=== PATIENT | male | born 1945 | race Caucasian/White ===

== ENCOUNTER → 2020-02-17 | Outpatient (REF) | payer MEDICARE ==
[2020-02-17 18:56] LABS: APPEARANCE, URINE CLOUDY (CLEAR); BACTERIA, URINE AUTO 1+ (NEGATIVE); BILIRUBIN, URINE AUTO NEGATIVE (NEGATIVE); BLOOD, URINE BLOOD 3+ (NEGATIVE); CALCIUM OXALATE CRYSTALS LARGE; COLOR, URINE RED (YELLOW); GLUCOSE, URINE (UA) AUTO NEGATIVE (NEGATIVE); KETONE, URINE AUTO NEGATIVE (NEGATIVE); LEUKOCYTE ESTERASE, URINE AUTO NEGATIVE (NEGATIVE); NITRITE, URINE AUTO NEGATIVE (NEGATIVE); PROTEIN, URINE AUTO 2+ mg/dL (NEGATIVE); RBC, URINE AUTO TNTC /HPF (0-3); SPECIFIC GRAVITY URINE AUTO 1.018 (1.002-1.035); SQUAMOUS EPITHELIAL CELL UR AU 0 /HPF (0-6); UROBILINOGEN, URINE AUTO 0.2 mg/dL (0.0-2.0); WBC, URINE AUTO TNTC /HPF (0-3)
== END ==
LOC: M SMT 16:44
PROVIDERS: ATTEND Nurse Practitioner Family
DX: R31.0 Gross hematuria (principal)

== ENCOUNTER → 2020-03-20 | Outpatient (CLI) | payer MEDICARE ==
[~2020-03-20] MED LIST: ISOVUE-370 76% 100ML VIAL As Ordered ONE
== END ==
LOC: M RAD 15:13
PROVIDERS: ATTEND Nurse Practitioner Family
DX: R31.0 Gross hematuria (principal); N40.0 Benign prostatic hyperplasia without lower urinary tract symptoms
CPT/HCPCS: 74178; Q9967

== ENCOUNTER 2020-04-08 10:28 | Day surgery (SDC) | payer MEDICARE ==
[2020-04-08] MEDS ORDERED: ceFAZolin 2 GM/D5W 50 ML IV BAG (J0690 PER 500MG) As Ordered ONE (10:53)
[2020-04-08] MEDS ORDERED: fentaNYL 100 MCG/2 ML INJECTION (J3010) As Ordered ONE ×2 (11:04→12:22)
[2020-04-08] MEDS ORDERED: MIDAZOLAM INJ 2MG/2ML VIAL (J2250 PER 1MG) As Ordered ONE (11:04)
[2020-04-08] MEDS ORDERED: propofoL 200 MG/20 ML VIAL As Ordered ONE (11:05)
[2020-04-08] MEDS ORDERED: dexameTHASONE 4 MG/ML 1ML VIAL (J1100 PER 1MG) As Ordered ONE (11:05)
[2020-04-08] MEDS ORDERED: ONDANSETRON 4MG/2ML VIAL As Ordered ONE (11:05)
[2020-04-08] MEDS ORDERED: LIDOCAINE 2% 100MG/5ML SDV (FOR ANES.) As Ordered ONE (11:05)
[2020-04-08] MEDS ORDERED: ACETAMINOPHEN 1000MG 100ML IV BTL (OFIRMEV) (J0131 PER 10MG) As Ordered ONE (11:43)
[2020-04-08] MEDS ORDERED: ePHEDrine SULFATE 25 MG/5 ML(5MG/ML) SYRINGE As Ordered ONE (11:49)
[2020-04-08] MEDS ORDERED: GLYCOPYRROLATE INJ 0.2 MG/ML 2 ML VIAL As Ordered ONE (11:50)
[2020-05-27 15:11] LABS: Ca Ox Monohydrate 30 % (.); Size 6x4 mm (.)
--- NOTE | 2020-06-11 13:22 | RO ---
DATE OF OPERATION: 04/08/2020 PREOPERATIVE DIAGNOSIS: Bladder calculi. POSTOPERATIVE DIAGNOSIS: Bladder calculi. PROCEDURE: Laser litholapaxy, bladder calculi. SURGEON: Jose Antonio Currie MD ANESTHESIA: General. TECHNICAL WRITER AND EDITOR: None. INDICATION FOR OPERATION: This is a 75-year-old white male who was found on office cystoscopy to have two large bladder stones measuring about 2 cm each. The patient was therefore brought to the operating room for a laser litholapaxy. DESCRIPTION OF OPERATION: The patient was placed on the table in the supine position, given general anesthesia, placed in lithotomy position, prepped with Betadine paint and draped in an aseptic manner. A timeout was then performed. A 22 [place] cystoscope was then inserted into the meatus and advanced under direct vision of a 30 degree lens to the bladder. The bladder channel was opened as was the bladder neck. In the bladder, the patient was found to have two large bladder stones which were then treated with laser lithotripsy and fragmented into powder in very small pieces. These pieces were then irrigated out. When no further fragments were found, the bladder was drained. Cystoscope was removed and the patient was awakened and sent to recovery room in stable condition, having tolerated the procedure well. ESTIMATED BLOOD LOSS: Less than 10 mL. DRAINS: None. COMPLICATIONS: None. MTDD
== END 2020-04-08 14:45 | disposition home or self-care (01) ==
LOC: M SDC 10:28
PROVIDERS: ATTEND Urology
DX: N21.0 Calculus in bladder (principal); Z79.899 Other long term (current) drug therapy
CPT/HCPCS: 52317; 82365; 88300; J0131; J0690; J1100; J2250; J2405; J3010

== ENCOUNTER 2023-07-03 09:29 | Day surgery (SDC) | payer OTHER ==
[~2023-07-03] VITALS: Ht 167.6 cm; Wt 65.5 kg
[~2023-07-03 09:29] MED LIST changes: +ATOR40TA75 PO; +CLOP75TA2 PO; +FINA5TAB2 PO; -ISOVUE-370 76% 100ML VIAL As Ordered ONE; +LIDOCAINE 2% 100MG/5ML SDV (FOR ANES.) As Ordered ONE; +ONDANSETRON 4MG 2ML VIAL As Ordered ONE; +TAMS1CAP17 PO; +propofoL 200 MG/20 ML VIAL As Ordered ONE
[2023-07-03] MEDS ORDERED: LR 1,000 ML IV SCH ×2 (10:10→13:00)
[2023-07-03 10:41] LABS: HEMATOCRIT 45.2 % (42.0-52.0); HEMOGLOBIN 15.1 g/dl (13.5-17.5); MEAN CORPUSCULAR HGB CONC 33.4 g/dl (32.0-36.5); MEAN CORPUSCULAR VOLUME 98.9 fl (80.0-96.0); PLATELET COUNT, AUTOMATED 123 10^3/uL (150-450); RED BLOOD COUNT 4.57 10^6/uL (4.30-6.10); WHITE BLOOD COUNT 5.4 10^3/uL (4.0-10.0)
[2023-07-03] MEDS ORDERED: MIDAZOLAM INJ 2MG/2ML VIAL As Ordered ONE (10:52)
[2023-07-03] MEDS ORDERED: fentaNYL 100 MCG/2 ML INJECTION As Ordered ONE (10:52)
[2023-07-03] MEDS ORDERED: ISOVUE-300 61% 100ML VIAL As Ordered ONE (10:58)
[2023-07-03] MEDS ORDERED: ceFAZolin SOD 2 GM in IV 1 EA IV ONE (11:00)
[2023-07-03 11:11] LABS: ALBUMIN 3.4 G/DL (3.2-5.2); ALKALINE PHOSPHATASE 73 U/L (46-116); ALT/SGPT 18 U/L (7.0-40); AST/SGOT 18 U/L (<34); BILIRUBIN,TOTAL 0.5 MG/DL (0.3-1.2); BLOOD UREA NITROGEN 28 MG/DL (9-23); CALCIUM LEVEL 8.6 MG/DL (8.3-10.6); CARBON DIOXIDE LEVEL 29 MMOL/L (20-31); CHLORIDE LEVEL 109 MMOL/L (98-107); CREATININE FOR GFR 0.72 MG/DL (0.70-1.30); GLOMERULAR FILTRATION RATE > 60.0 (>42); GLUCOSE, FASTING 91 MG/DL (74-106); POTASSIUM SERUM 4.2 MMOL/L (3.5-5.1); SODIUM LEVEL 145 MMOL/L (136-145); TOTAL PROTEIN 5.9 G/DL (5.7-8.2)
[2023-07-03] MEDS ORDERED: ACETAMINOPHEN 1000MG 100ML IV BAG As Ordered ONE (11:15)
[2023-07-03] MEDS ORDERED: ePHEDrine SULFATE 25 MG/5 ML(5MG/ML) SYRINGE As Ordered ONE (11:36)
[2023-07-03 12:00] LABS: INR 1.07; PROTHROMBIN TIME 13.6 SECONDS (12.5-14.5)
[2023-07-03] MEDS ORDERED: ONDANSETRON 4MG 2ML VIAL IV PRN (13:00)
[2023-07-03] MEDS ORDERED: oxyCODONE 5MG TAB PO PRN (13:00)
[2023-07-03] MEDS ORDERED: fentaNYL 100 MCG/2 ML INJECTION IV PRN (13:00)
[2023-07-03] MEDS ORDERED: HYDROMORPHONE HCL 0.5 MG/ 0.5 ML SYRINGE IV PRN (13:00)
[2023-07-03] MEDS ORDERED: PYRI1TAB5 PO (13:02)
[2023-07-03] MEDS ORDERED: LEVO1TAB39 PO (13:02)
[2023-07-03 18:50] VITALS: BP 139/64; TEMP 97.7; O2SAT 98
[2023-07-10 16:09] LABS: CA Hydro Phos 100 % (.); Size 8x5 mm (.)
== END 2023-07-03 17:00 | disposition home or self-care (01) ==
LOC: M SDC 09:29
PROVIDERS: ATTEND Urology
DX: N21.0 Calculus in bladder (principal); E78.00 Pure hypercholesterolemia, unspecified; Z87.442 Personal history of urinary calculi; Z86.73 Personal history of transient ischemic attack (TIA), and cerebral infarction without residual deficits; Z79.02 Long term (current) use of antithrombotics/antiplatelets; Z90.49 Acquired absence of other specified parts of digestive tract; Z79.899 Other long term (current) drug therapy
CPT/HCPCS: 52318; 80053; 82365; 85027; 85610; C1769; C1894; J0131; J1100; J2250; J2405; J3010; Q9967

== ENCOUNTER 2024-03-21 10:50 | Day surgery (SDC) | payer OTHER ==
[~2024-03-21] VITALS: Ht 167.6 cm; Wt 64.0 kg
[~2024-03-21 10:50] MED LIST changes: +LEVO1TAB39 PO; -LIDOCAINE 2% 100MG/5ML SDV (FOR ANES.) As Ordered ONE; -ONDANSETRON 4MG 2ML VIAL As Ordered ONE; +PYRI1TAB5 PO; -propofoL 200 MG/20 ML VIAL As Ordered ONE
[2024-03-21] MEDS ORDERED: LIDOCAINE 2% 100MG/5ML SDV (FOR ANES.) As Ordered ONE (12:07)
[2024-03-21] MEDS ORDERED: propofoL 500 MG/50 ML VIAL As Ordered ONE (12:07)
[2024-03-21] MEDS ORDERED: fentaNYL 100 MCG/2 ML INJECTION As Ordered ONE (12:08)
[2024-03-21] MEDS ORDERED: dexmedeTOMIDine (4MCG/ML)200MCG/50ML BTL (PRECEDEX) As Ordered ONE (12:08)
[2024-03-21] MEDS ORDERED: KETOROLAC 60MG 2ML VIAL As Ordered ONE (12:13)
[2024-03-21] MEDS: ceFAZolin SOD 2 GM in IV 1 EA IV ONE (13:00)
[2024-03-21] MEDS ORDERED: ACETAMINOPHEN 1000MG 100ML IV BAG As Ordered ONE (13:10)
[2024-03-21] MEDS ORDERED: PHENYLephrine 500MCG 5ML (100MCG/ML) SYRINGE As Ordered ONE (13:19)
[2024-03-21] MEDS ORDERED: VASOPRESSIN INJ 20UNITS/ML 1ML VIAL As Ordered ONE (13:38)
[2024-03-21] MEDS ORDERED: ONDANSETRON 4MG 2ML VIAL As Ordered ONE (13:58)
[2024-03-21] MEDS ORDERED: MACR100C43 PO (14:08)
[2024-03-21 14:11] VITALS: BP 98/53; TEMP 97.3; O2SAT 96
== END 2024-03-21 15:30 | disposition home or self-care (01) ==
LOC: M SDC 10:50
PROVIDERS: ATTEND Urology
DX: C61 Malignant neoplasm of prostate (principal); N21.0 Calculus in bladder; R31.29 Other microscopic hematuria; N52.9 Male erectile dysfunction, unspecified; I45.10 Unspecified right bundle-branch block; E78.5 Hyperlipidemia, unspecified; Z79.899 Other long term (current) drug therapy; Z79.02 Long term (current) use of antithrombotics/antiplatelets; Z86.73 Personal history of transient ischemic attack (TIA), and cerebral infarction without residual deficits; Z90.49 Acquired absence of other specified parts of digestive tract; Z87.19 Personal history of other diseases of the digestive system
CPT/HCPCS: 52317; 52601; 82365; 88305; C1769; C1894; C2617; J0131; J0690; J1100; J1885; J2371; J2405; J2598; J3010

== ENCOUNTER → 2025-01-07 | Outpatient (REF) | payer MEDICARE ==
[~2025-01-07] MED LIST changes: +MACR100C43 PO
[2025-01-07 15:46] LABS: APPEARANCE, URINE HAZY (CLEAR); BACTERIA, URINE AUTO NEGATIVE (NEGATIVE); BILIRUBIN, URINE AUTO NEGATIVE (NEGATIVE); BLOOD, URINE BLOOD NEGATIVE (NEGATIVE); CALCIUM OXALATE CRYSTALS SMALL; COLOR, URINE YELLOW (YELLOW); GLUCOSE, URINE (UA) AUTO NEGATIVE (NEGATIVE); KETONE, URINE AUTO NEGATIVE (NEGATIVE); LEUKOCYTE ESTERASE, URINE AUTO 1+ (NEGATIVE); MUCUS, URINE SMALL (NEGATIVE); NITRITE, URINE AUTO NEGATIVE (NEGATIVE); PROTEIN, URINE AUTO 1+ mg/dL (NEGATIVE); RBC, URINE AUTO 4 /HPF (0-3); SPECIFIC GRAVITY URINE AUTO 1.018 (1.002-1.035); SQUAMOUS EPITHELIAL CELL UR AU 1 /HPF (0-6); WBC, URINE AUTO 31 /HPF (0-3)
== END ==
LOC: M SMT 15:30
PROVIDERS: ATTEND Urology
DX: Z87.448 Personal history of other diseases of urinary system (principal)